=== PATIENT | male | born 1995 | race Caucasian/White ===

== ENCOUNTER 2019-08-25 19:09 | Inpatient (IN) | payer OTHER ==
[~2019-08-25] VITALS: Ht 167.6 cm; Wt 83.5 kg
[2019-08-25] MEDS ORDERED: NAPR-885 PO (19:38)
[2019-08-25 20:23] LABS: HEMATOCRIT 44.7 % (42.0-52.0); HEMOGLOBIN 14.7 g/dl (13.5-17.5); MEAN CORPUSCULAR HEMOGLOBIN 30.1 pg (27.0-33.0); MEAN CORPUSCULAR HGB CONC 32.9 g/dl (32.0-36.5); MEAN CORPUSCULAR VOLUME 91.6 fl (80.0-96.0); PLATELET COUNT, AUTOMATED 278 10^3/uL (150-450); RED BLOOD COUNT 4.88 10^6/uL (4.30-6.10); WHITE BLOOD COUNT 7.6 10^3/uL (4.0-10.0)
[2019-08-25 20:58] LABS: AMPHETAMINES LEVEL URINE NEGATIVE (NEGATIVE); BARBITURATES URINE NEGATIVE (NEGATIVE); BENZODIAZEPINES URINE NEGATIVE (NEGATIVE); CANNABINOIDS URINE NEGATIVE (NEGATIVE); COCAINE METABOLITE URINE NEGATIVE (NEGATIVE); METHADONE URINE NEGATIVE (NEGATIVE); OPIATES URINE NEGATIVE (NEGATIVE); PHENCYCLIDINE URINE NEGATIVE (NEGATIVE)
[2019-08-25 21:05] LABS: ACETAMINOPHEN LEVEL < 2.0 UG/ML (10.0-30.0); ALBUMIN 3.9 GM/DL (3.2-5.2); ALT/SGPT 68 U/L (12-78); BILIRUBIN,DIRECT 0.2 MG/DL (0.0-0.2); BILIRUBIN,TOTAL 0.7 MG/DL (0.2-1.0); BLOOD UREA NITROGEN 13 MG/DL (7-18); CALCIUM LEVEL 9.3 MG/DL (8.5-10.1); CARBON DIOXIDE LEVEL 29 MEQ/L (21-32); CHLORIDE LEVEL 106 MEQ/L (98-107); CREATININE FOR GFR 1.08 MG/DL (0.70-1.30); ETHYL ALCOHOL (ETHANOL) < 0.003 % (0.000-0.010); GLOMERULAR FILTRATION RATE > 60.0 (>60); GLUCOSE, FASTING 126 MG/DL (70-100); POTASSIUM SERUM 3.7 MEQ/L (3.5-5.1); SALICYLATE LEVEL < 1.7 MG/DL (5.0-30.0); SODIUM LEVEL 141 MEQ/L (136-145); TOTAL PROTEIN 7.1 GM/DL (6.4-8.2)
[2019-08-25] MEDS ORDERED: MAALOX 30 ML SUSP *UDC PO PRN (22:45)
[2019-08-25] MEDS ORDERED: traZODone 50 MG TAB PO PRN (22:45)
[2019-08-25] MEDS ORDERED: MOM 30ML SUSPENSION UDC PO PRN (22:45)
[2019-08-25 23:48] VITALS: BP 119/75
[2019-08-26 06:49] VITALS: BP 121/68
--- NOTE | 2019-08-26 08:17 | HPEPDOC ---
[facility] Medical History & Physical History and Physical CHIEF COMPLAINT: HISTORY OF PRESENT ILLNESS: PAST MEDICAL HISTORY: 1. . 2. . 3. . PAST SURGICAL HISTORY: 1. . 2. . 3. . SOCIAL HISTORY: Marital status: . Resides in: Children: Employment: Tobacco use: ETOH: Illicit drug use: Tattoos done unprofessionally: . IV drug use: Other relevant social factors: FAMILY HISTORY: Father: Mother: Siblings: Children: Hereditary Diseases: Unexpected deaths due to medical reasons: ALLERGIES: Please see below. REVIEW OF SYSTEMS: CONSTITUTIONAL: . HEENT: . CARDIOVASCULAR: . RESPIRATORY: . GASTROINTESTINAL: . GENITOURINARY: . SKIN: . MUSCULOSKELETAL: . NEUROLOGICAL: . PSYCHIATRIC: . ENDOCRINE: . HEMATOLOGIC/LYMPHATIC: . HOME MEDICATIONS: Please see below. PHYSICAL EXAMINATION: VITAL SIGNS: Temperature , pulse , respiratory rate , blood pressure , pulse oximetry % on room air. GENERAL APPEARANCE: . HEENT: . CARDIOVASCULAR: . LUNGS: . ABDOMEN: . MUSCULOSKELETAL: . EXTREMITIES: . NEUROLOGICAL: . PSYCHIATRIC: . LABORATORY DATA: See below. IMAGING: MICROBIOLOGY: Please see below. ASSESSMENT: . . PLAN: 1. . Vital Signs Vital Signs Date Time Temp Pulse Resp B/P (MAP) Pulse Ox O2 Delivery O2 Flow Rate FiO2 08/26/19 06:49 98.7 82 14 121/68 (85) 08/25/19 23:48 96 Room Air Laboratory Data Labs 24H Laboratory Tests 2 08/25/19 20:09: Nucleated Red Blood Cells % (auto) 0.0, Anion Gap 6L, Glomerular Filtration Rate > 60.0, Calcium Level 9.3, Total Bilirubin 0.7, Direct Bilirubin 0.2, Aspartate Amino Transf (AST/SGOT) 22, Alanine Aminotransferase (ALT/SGPT) 68, Alkaline Phosphatase 90, Total Protein 7.1, Albumin 3.9, Albumin/Globulin Ratio 1.22, Thyroid Stimulating Hormone (TSH) 1.500, Salicylates Level < 1.7L, Urine Opiates Screen NEGATIVE, Urine Methadone Screen NEGATIVE, Acetaminophen Level < 2.0L, Urine Barbiturates Screen NEGATIVE, Urine Phencyclidine Screen NEGATIVE, Urine Amphetamines Screen NEGATIVE, Urine Benzodiazepines Screen NEGATIVE, Urine Cocaine Metabolite Screen NEGATIVE, Urine Cannabinoids Screen NEGATIVE, Ethyl Alcohol Level < 0.003 CBC/BMP Laboratory Tests 08/25/19 20:09 Home Medications Scheduled PRN Naproxen (Naproxen) 500 Mg Tablet, 500 MG PO BID PRN for PAIN Allergies Coded Allergies: loratadine (Verified Allergy, Unknown, 08/25/19) KAREN AARON MD Aug 26, 2019 08:16
--- NOTE | 2019-08-26 08:18 | CR.PDOC ---
General Date of Consultation: Aug 26, 2019 Consultation REASON FOR CONSULTATION/CHIEF COMPLAINT: Medical consult. HISTORY OF PRESENT ILLNESS: Patient is a 24-year-old male with past medical history of bilateral IT band tendonitis, hypertension, hyperlipidemia, generalized anxiety disorder and depression, hospitalized in [facility] due to unspecified depression. Yesterday he had thoughts of hurting himself, she denies suicidal ideation and homicidal ideation today. He denies any history of hallucinations. He has been of sertraline in the past. He also denies any headaches, changes in vision, chest pain, shortness of breath, nausea, vomiting, abdominal pain, issues with voiding or stooling, arthralgias, myalgias, new rashes. He is only taking naproxen twice a day for his IT band tendinitis from training. Most recent labs include negative, UDS, negative alcohol, salicylates, acetaminophen. CBC and CMP grossly within normal limits, patients glucose slightly elevated at 126, TSH within normal limits 1.5. ROS: 10 point review of systems are negative except per above. PMH: See above. PSH: [employer] teeth extraction Family history: heart disease, cancers, diabetes Social history: Denies tobacco, occasional alcohol consumption, denies illicits, works with [employer] Allergies: Loratadine: hives PHYSICAL EXAMINATION: VITAL SIGNS: Please see below. GENERAL: male, No distress HEENT: Normocephalic, atraumatic, moist mucous membranes, EOMI, PERRLA NECK: Supple CARDIOVASCULAR EXAMINATION: S1, S2, no murmurs RESPIRATORY EXAMINATION: CTAB ABDOMINAL EXAMINATION: Soft, nontender, nondistended, positive bowel sounds EXTREMITIES: no edema SKIN: No rash NEUROLOGICAL EXAMINATION: Alert and oriented 3, no focal deficits PSYCHIATRIC EXAMINATION: Calm and cooperative, appropriate affect Patient is a 24-year-old male with past medical history of bilateral IT band tendinitis, hypertension, hyperlipidemia, generalized anxiety disorder and depression, [facility] due to [facility] depression. #Unspecified depression: Follow primary team management #IT band tendonitis: Continue home naproxen to take with food #. Hypertension/lipidemia: Not dependent on medications, continue to monitor. If blood pressure is 120/80, will trial with dietary and lifestyle changes first, prior to medication administration, patient is 24 years old. #. Obesity with a BMI of 29: Follow up as an outpatient DVT prophylaxis: Frequent ambulation. Thank you for the consult. Vital Signs/I&O Vital Signs Date Time Temp Pulse Resp B/P (MAP) Pulse Ox O2 Delivery O2 Flow Rate FiO2 08/26/19 06:49 98.7 82 14 121/68 (85) 08/25/19 23:48 96 Room Air Laboratory Data Labs 24H Laboratory Tests 2 08/25/19 20:09: Nucleated Red Blood Cells % (auto) 0.0, Anion Gap 6L, Glomerular Filtration Rate > 60.0, Calcium Level 9.3, Total Bilirubin 0.7, Direct Bilirubin 0.2, Aspartate Amino Transf (AST/SGOT) 22, Alanine Aminotransferase (ALT/SGPT) 68, Alkaline Phosphatase 90, Total Protein 7.1, Albumin 3.9, Albumin/Globulin Ratio 1.22, Thyroid Stimulating Hormone (TSH) 1.500, Salicylates Level < 1.7L, Urine Opiates Screen NEGATIVE, Urine Methadone Screen NEGATIVE, Acetaminophen Level < 2.0L, Urine Barbiturates Screen NEGATIVE, Urine Phencyclidine Screen NEGATIVE, Urine Amphetamines Screen NEGATIVE, Urine Benzodiazepines Screen NEGATIVE, Urine Cocaine Metabolite Screen NEGATIVE, Urine Cannabinoids Screen NEGATIVE, Ethyl Alcohol Level < 0.003 CBC/BMP Laboratory Tests 08/25/19 20:09 Allergies Coded Allergies: loratadine (Verified Allergy, Unknown, 08/25/19) Home Medications Scheduled PRN Naproxen (Naproxen) 500 Mg Tablet, 500 MG PO BID PRN for PAIN, (Reported) KAREN AARON MD Aug 26, 2019 08:18
[2019-08-26 17:08] VITALS: BP 121/71
[2019-08-26] MEDS: ACETAMINOPHEN TAB 650MG DOSE (2X325MG) PO PRN (18:28)
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
[2019-08-27 06:53] VITALS: BP 113/58
[2019-08-27] MEDS: VENLAFAXINE **XR** 75MG CAPSULE PO SCH (08:58)
[2019-08-27] MEDS: ACETAMINOPHEN TAB 650MG DOSE (2X325MG) PO PRN ×2 (08:58→21:14)
[2019-08-27 15:40] VITALS: BP 133/65
[2019-08-28 06:03] VITALS: BP 132/83
--- NOTE | 2019-08-28 06:50 | MHIPN ---
DATE OF SERVICE: 08/27/2019 The patient today states, "I am doing really good". He says he slept good. He is not having any thoughts of harming himself or anybody else. He admits that he feels that being in the hospital is helping him feel better because he feels like he is away from all of his stress from work and his family. MENTAL STATUS EXAMINATION: He is alert and oriented times three, pleasant and cooperative, verbally spontaneous. Eye contact is good. There is no formal thought disorder noted. He says his mood is very good. His affect is full range and appropriate. He is not psychotic, suicidal or homicidal. Concentration and memory is good. Insight and judgment good. DIAGNOSIS: Other specified depressive disorder. TREATMENT PLAN: At this point, the patient will continue to be monitored for continued resolution of suicidal and homicidal ideations and continued stabilization.
[2019-08-28] MEDS: VENLAFAXINE **XR** 75MG CAPSULE PO SCH (08:05)
[2019-08-28] MEDS: ACETAMINOPHEN TAB 650MG DOSE (2X325MG) PO PRN (08:06)
--- NOTE | 2019-08-28 09:26 | MHIPNPDOC ---
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 Interval History The patient has met with today. He reports he is feeling much improved after the treatment and is interested in being discharged. Over the weekend, he has had no significant behavioral problems. Nursing staff noticed him to to be amenable, friendly and social on the unit. He reports that his low mood, fatigue and loss of interest have all resolved quickly since his presentation suggesting adjustment. He is currently doing well since being restarted on his Effexor r eporting it to be quite helpful. Review Of Systems General: Denies fever or appetite changes Cardiovascular: Denies Chest pain or palpations GI: Denies Nausea, vomiting, or bowel changes Respiratory: Denies shortness of breath or cough Neuro: Denies dizziness, tremors Derm: Denies any rashes or pruritus : Denies any dysuria or urinary problems MSK: Denies any muscle tightness or stiffness HEENT: Denies any vision changes or headaches Heme/Lymph: denies any bruising or bleeding Endo: denies any cold/heat intolerance or water intake changes Psychotherapy None on this visit. Vital Signs Reviewed. Mental Status Examination General: Well dressed with good hygiene Speech: Spontaneous and fluid Thought processes: Linear and logical MSK: Smooth and coordinated gait, no signs of tremors or involuntary orofacial movements Thought content: Future orientated Abstract reasoning, and computation: Intact Description of associations: Intact Description of abnormal or psychotic thoughts: Denies any suicidal or homicidal ideation. Denies any auditory or visual hallucinations. Does not appear to be responding to internal stimuli. Does not appear to be endorsing any bizarre or paranoid ideation. Judgment: fair Insight: fair Orientation: Alert and orientated 3 Cognition: Grossly normal Recent and remote memory: Intact Attention span and concentration: Intact Fund of knowledge: Adequate Mood: "okay" Affect: Euthymic with a full range Diagnoses Adjustment disorder with disruption in mood and conduct. Assessment and Plan Adjustment disorder: Continue Effexor extended release 75 mg daily. Disposition The patient will be discharged tomorrow. Time Spent 15 minutes [id number]. Papi Vital Signs Vital Signs Date Time Temp Pulse Resp B/P (MAP) Pulse Ox O2 Delivery O2 Flow Rate FiO2 08/28/19 06:03 99.0 62 16 132/83 (99) 08/27/19 08:03 Room Air 08/25/19 23:48 96 Current Medications Current Medications Medications (Trade) Dose Ordered Sig/Robert Route PRN Reason Start Time Stop Time Status Last Admin Dose Admin Acetaminophen (Tylenol Tab) 650 mg Q6HP PRN PO HEADACHE or DISCOMFORT 08/25/19 22:45 08/28/19 08:06 Al Hydrox/Mg Hydrox/Simethicone (Mylanta) 30 ml Q4HP PRN PO HEARTBURN/INDIGESTION 08/25/19 22:45 Home Med (Med Rec Complete!) ASDIRECTED XX 08/25/19 23:15 08/25/19 23:14 DC Magnesium Hydroxide (Milk Of Magnesia) 30 ml DAILYPRN PRN PO CONSTIPATION 08/25/19 22:45 Trazodone HCl (Desyrel) 50 mg QHSP PRN PO INSOMNIA 08/25/19 22:45 Venlafaxine HCl (Effexor Xr) 75 mg QAM PO 08/27/19 09:00 08/28/19 08:05 Allergies Coded Allergies: loratadine (Verified Allergy, Unknown, 08/25/19) ROSY HUNG DO Aug 28, 2019 09:26
[2019-08-28 18:00] VITALS: BP 133/83
[2019-08-28] MEDS: NAPROXEN 250 MG TAB PO SCH (20:27)
[2019-08-29 06:29] VITALS: BP 118/69
[2019-08-29] MEDS: VENLAFAXINE **XR** 75MG CAPSULE PO SCH (08:08)
[2019-08-29] MEDS: NAPROXEN 250 MG TAB PO SCH (08:09)
[2019-08-29] MEDS ORDERED: VENL75CA47 PO (10:16)
--- NOTE | 2019-08-29 14:16 | MHDSPDOC ---
[facility] Discharge Summary Discharge Summary DATE OF ADMISSION: Aug 25, 2019 at 22:42 DATE OF DISCHARGE: Aug 29, 2019 at 13:17 Discharge Mayur Pickering MRN: N/A Date of : N/A Date of Service: 08/29/2019 Diagnoses Adjustment disorder with disruption in mood and conduct. 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 Consultants Involved Hospitalist/PCP screening Treatment and Progress On The Unit The patient was admitted to the inpatient unit, subsequently observed. He initially elected to have therapy only, however, when restarted on his home Effexor, he did quite well. His depression resolving quite quickly. His hopelessness and vague helplessness then initially was construed as suicidal thoughts, but that the patient clarified to me were more hopeless with no particular plan, intention or means to kill himself, resolved quite quickly. He attended groups, had no behavioral problems and did well on the Effexor. He requested to leave and declined further voluntary admission. On the day of discharge, he did not meet involuntary criteria, but denying suicidal or homicidal ideation throughout the entirety of his stay. He had a normal mental status, had good insight, cooperated with discharge and had a reasonable safety plan and thus was discharged in good kurt. 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 He is restarted on home Effexor, doing well on the unit, becoming euthymic quite quickly favoring adjustment over MDD. Mental Status Examination General: Well dressed with good hygiene Speech: Spontaneous and fluid Thought processes: Linear and logical MSK: Smooth and coordinated gait, no signs of tremors or involuntary orofacial movements Thought content: Future orientated Abstract reasoning, and computation: Intact Description of associations: Intact Description of abnormal or psychotic thoughts: Denies any suicidal or homicidal ideation. Denies any auditory or visual hallucinations. Does not appear to be responding to internal stimuli. Does not appear to be endorsing any bizarre or paranoid ideation. Judgment: fair Insight: fair Orientation: Alert and orientated 3 Cognition: Grossly normal Recent and remote memory: Intact Attention span and concentration: Intact Fund of knowledge: Adequate Mood: "okay" Affect: Euthymic with a full range Follow Up The social work team worked during the predischarge meeting in order to evaluate for further issues of lethality address them fully before discharge. They worked on safety planning with the patient's family members in order to ensure that the patient will have a safe and effective discharge. Time Spent The amount of time spent in the coordination of care for this patient was approximately 60 minutes. Wednesday Vital Signs/I&Os Vital Signs Date Time Temp Pulse Resp B/P (MAP) Pulse Ox O2 Delivery O2 Flow Rate FiO2 08/29/19 08:51 Room Air 08/29/19 06:29 97.6 71 12 118/69 (85) 08/25/19 23:48 96 Medications Scheduled Venlafaxine HCl (Venlafaxine HCl ER) 75 Mg Cap.er.24h, 75 MG PO QAM for mood for 7 Days, #7 Scheduled PRN Naproxen (Naproxen) 500 Mg Tablet, 500 MG PO BID PRN for PAIN, (Reported) Allergies Coded Allergies: loratadine (Verified Allergy, Unknown, 08/25/19) ROSY HUNG DO Aug 29, 2019 14:16
== END 2019-08-29 13:17 | disposition home or self-care (01) | DRG 882 ==
LOC: M ED 19:09 → M ED INP 22:42 → M PSY 23:48
PROVIDERS: ADMIT Psychiatry & Neurology Psychiatry; ATTEND Psychiatry & Neurology Addiction Medicine
DX: F43.25 Adjustment disorder with mixed disturbance of emotions and conduct (principal); Z81.8 Family history of other mental and behavioral disorders; E66.9 Obesity, unspecified; Z68.29 Body mass index [BMI] 29.0-29.9, adult; M76.891 Other specified enthesopathies of right lower limb, excluding foot; M76.892 Other specified enthesopathies of left lower limb, excluding foot; Z88.8 Allergy status to other drugs, medicaments and biological substances

== ENCOUNTER 2019-12-08 14:01 | Emergency (ER) | payer OTHER ==
[~2019-12-08] VITALS: Ht 165.1 cm; Wt 78.2 kg
[~2019-12-08 14:01] MED LIST: NAPR-885 PO; VENL75CA47 PO
[2019-12-08] MEDS ORDERED: ONDANSETRON 4MG/2ML VIAL (J2405) IV ONE (14:30)
[2019-12-08] MEDS ORDERED: ceFAZolin SOD 1 GM in D5W MINI-BAG PLUS 50 ML IV ONE (14:30)
[2019-12-08] MEDS ORDERED: MORPHINE 4 MG/ML 1ML VIAL/SYRINGE (J2270) IV ONE (14:30)
--- NOTE | 2019-12-08 15:08 | REP ---
RIGHT FINGERS: Four views of the right fingers are performed. There is a mildly displaced fracture of the tuft of the 2nd distal phalanx. There is amputation of the tip of 3rd digit as well as a portion of the tuft of the distal phalanx. No other radiographic abnormalities are seen. There is an overlying bandage which somewhat limits the exam. Electronically Signed by Dannie Mccabe MD 12/12/2019 04:07 P
[2019-12-08] MEDS ORDERED: PERCOCET 5MG/325MG TAB PO ONE (15:30)
[2019-12-08] MEDS ORDERED: PERC5TAB12 PO (17:02)
[2019-12-08] MEDS ORDERED: KEFL500C17 PO (17:02)
[2019-12-08 17:34] VITALS: BP 137/78
== END 2019-12-08 17:35 | disposition home or self-care (01) ==
LOC: M ED 14:01
DX: S68.612A Complete traumatic transphalangeal amputation of right middle finger, initial encounter (principal); S61.310A Laceration without foreign body of right index finger with damage to nail, initial encounter; X58.XXXA Exposure to other specified factors, initial encounter; Y92.139 Unspecified place military base as the place of occurrence of the external cause; Y93.9 Activity, unspecified; Y99.1 Military activity; Z79.899 Other long term (current) drug therapy; Z88.8 Allergy status to other drugs, medicaments and biological substances
CPT/HCPCS: 73140; 80047; 96365; 96375; 99284; J0690; J2270; J2405